=== PATIENT | female | born 1995 | race Caucasian/White ===

== ENCOUNTER → 2017-03-09 | Outpatient (CLI) | payer BC | LOC: FCPNEURO 21:00 | PROVIDERS: ATTEND Student in an Organized Health Care Education/Training Program | DX: G47.33 Obstructive sleep apnea (adult) (pediatric) (principal) ==

== ENCOUNTER → 2017-03-22 | Outpatient (CLI) | payer BC | LOC: BMCIMAGING 17:32 | PROVIDERS: ATTEND Family Medicine | DX: J34.89 Other specified disorders of nose and nasal sinuses (principal); R51 Headache ==

== ENCOUNTER 2018-06-17 14:50 | Emergency (ER) | payer OTHER ==
--- NOTE | 2018-06-17 15:32 | EDPHY ---
H & P Time Seen by Provider: 06/17/18 15:32 HPI/ROS: Chief complaint. Abdominal pain HPI. 22-year-old female with recent UTI and took 10 days of antibiotics. Now with left lower quadrant pain for 1 hr. Radiating through to her back. Nausea vomiting and diarrhea. No urinary symptoms. No chest pain or shortness of breath. No fever. Pain is described as sharp left lower quadrant radiating through to her back ROS 10 systems were reviewed and negative with the exception of the elements mentioned in the history of present illness Past Medical/Surgical History: Doses, mood disorder, fallopian tube cysts Social History: Single, nonsmoker, no alcohol Smoking Status: Never smoked Physical Exam: General Appearance: Alert well-developed female moderate distress and crying vital signs significant for heart rate 103 Eyes: Pupils equal and round no pallor or injection. ENT, Mouth: Mucous membranes are moist. Respiratory: There are no retractions, lungs are clear to auscultation. Cardiovascular: Regular rate and rhythm. Gastrointestinal: Abdomen is soft with tenderness in the left adnexa. No masses. Normal bowel sounds Neurological: Awake and alert, sensory and motor exams grossly normal. Skin: Warm and dry, no rashes. Musculoskeletal: Neck is supple nontender. Extremities symmetrical, full range of motion. Psychiatric: Patient is oriented X 3, there is no agitation. Constitutional: Initial Vital Signs Temperature (C) 36.3 C 06/17/18 15:02 Heart Rate 103 H 06/17/18 15:02 Respiratory Rate 18 06/17/18 15:02 Blood Pressure 122/88 H 06/17/18 15:02 O2 Sat (%) 100 06/17/18 15:02 O2 Delivery Mode Room Air Allergies/Adverse Reactions: No Known Allergies Allergy (Verified 06/17/18 15:01) Home Medications: Medication Instructions Recorded Wellbutrin 150mg SR (*) 06/17/18 Medical Decision Making - Diagnostics Imaging Results: Imaging Impressions Pelvic/Renal Ultrasound 06/17/18 15:38 Impression: Negative ultrasound pelvis. Results called to Dr. Fernandez at 4:20 PM Procedures: Old records are reviewed IV normal saline. Fentanyl, Toradol, Zofran for pain and nausea ED Course/Re-evaluation: Re-evaluation at 5:10 p.m.. Patient is stable. Patient and I discussed imaging studies and laboratory evaluation. We discussed further workup including CT for left lower quadrant pain. She has really quite comfortable at this point. She has an appointment with her senior data warehouse architect tomorrow in [place]. She feels comfortable waiting for that appointment and not having CT today. She is encouraged by me to return for worsening symptoms tonight. She will be given labs and ultrasound on a CD Differential Diagnosis: Left lower quadrant pain. I have considered ovarian cyst, urinary tract infection, pyelonephritis. This may be exacerbation of her endometriosis - Data Points Laboratory Results: Laboratory Results 06/17/18 15:50 06/17/18 15:50 06/17/18 06/17/18 06/17/18 16:15 15:50 15:50 WBC RBC Hgb Hct MCV MCH MCHC RDW Plt Count MPV Neut % (Auto) Lymph % (Auto) [place] % (Auto) Eos % (Auto) Baso % (Auto) Nucleat RBC Rel Count Absolute Neuts (auto) Absolute Lymphs (auto) Absolute Monos (auto) Absolute Eos (auto) Absolute Basos (auto) Absolute Nucleated RBC Immature Gran % Immature Gran # Sodium 139 mEq/L mEq/L (135-145) Potassium 3.8 mEq/L mEq/L (3.5-5.2) Chloride 109 mEq/L mEq/L (97-110) Carbon Dioxide 22 mEq/l mEq/l (22-31) Anion Gap 8 mEq/L mEq/L (6-14) BUN 9 mg/dL mg/dL (7-23) Creatinine 0.7 mg/dL mg/dL (0.6-1.0) Estimated GFR > 60 Glucose 91 mg/dL mg/dL (70-100) Calcium 9.6 mg/dL mg/dL (8.5-10.4) Beta HCG, Qual NEGATIVE Urine Color COLORLESS Urine Appearance CLEAR Urine pH 9.0 H (5.0-7.5) Ur Specific [place] 1.002 (1.002-1.030) Urine Protein NEGATIVE (NEGATIVE) Urine Ketones NEGATIVE (NEGATIVE) Urine Blood NEGATIVE (NEGATIVE) Urine Nitrate NEGATIVE (NEGATIVE) Urine Bilirubin NEGATIVE (NEGATIVE) Urine Urobilinogen NEGATIVE EU EU (0.2-1.0) Ur Leukocyte Esterase NEGATIVE (NEGATIVE) Urine RBC NONE SEEN /hpf /hpf (0-3) Urine WBC 0-1 /hpf /hpf (0-3) Ur Epithelial Cells NONE SEEN /lpf /lpf (NONE-1+) Urine Glucose NEGATIVE (NEGATIVE) 06/17/18 15:50 WBC 5.96 10^3/uL 10^3/uL (3.80-9.50) RBC 4.84 10^6/uL 10^6/uL (4.18-5.33) Hgb 14.5 g/dL g/dL (12.6-16.3) Hct 42.7 % % (38.0-47.0) MCV 88.2 fL fL (81.5-99.8) MCH 30.0 pg pg (27.9-34.1) MCHC 34.0 g/dL g/dL (32.4-36.7) RDW 12.9 % % (11.5-15.2) Plt Count 190 10^3/uL 10^3/uL (150-400) MPV 12.9 fL H fL (8.7-11.7) Neut % (Auto) 62.7 % % (39.3-74.2) Lymph % (Auto) 26.2 % % (15.0-45.0) [place] % (Auto) 8.9 % % (4.5-13.0) Eos % (Auto) 1.2 % % (0.6-7.6) Baso % (Auto) 0.7 % % (0.3-1.7) Nucleat RBC Rel Count 0.0 % % (0.0-0.2) Absolute Neuts (auto) 3.74 10^3/uL 10^3/uL (1.70-6.50) Absolute Lymphs (auto) 1.56 10^3/uL 10^3/uL (1.00-3.00) Absolute Monos (auto) 0.53 10^3/uL 10^3/uL (0.30-0.80) Absolute Eos (auto) 0.07 10^3/uL 10^3/uL (0.03-0.40) Absolute Basos (auto) 0.04 10^3/uL 10^3/uL (0.02-0.10) Absolute Nucleated RBC 0.00 10^3/uL 10^3/uL (0-0.01) Immature Gran % 0.3 % % (0.0-1.1) Immature Gran # 0.02 10^3/uL 10^3/uL (0.00-0.10) Sodium Potassium Chloride Carbon Dioxide Anion Gap BUN Creatinine Estimated GFR Glucose Calcium Beta HCG, Qual Urine Color Urine Appearance Urine pH Ur Specific [place] Urine Protein Urine Ketones Urine Blood Urine Nitrate Urine Bilirubin Urine Urobilinogen Ur Leukocyte Esterase Urine RBC Urine WBC Ur Epithelial Cells Urine Glucose Medications Given: Discontinued Medications Fentanyl (Sublimaze) 100 mcg IVP EDNOW ONE Stop: 06/17/18 15:39 Last Admin: 06/17/18 16:12 Dose: 100 mcg Sodium Chloride (Ns) 1,000 mls @ 0 mls/hr IV EDNOW ONE; Wide Open PRN Reason: Protocol Stop: 06/17/18 15:39 Last Admin: 06/17/18 16:12 Dose: 1,000 mls Ketorolac Tromethamine (Toradol) 30 mg IVP EDNOW ONE Stop: 06/17/18 15:39 Last Admin: 06/17/18 16:12 Dose: 30 mg Ondansetron HCl (Zofran) 4 mg IVP EDNOW ONE Stop: 06/17/18 15:39 Last Admin: 06/17/18 16:12 Dose: 4 mg Departure - Departure Disposition: Home, Routine, Self-Care Clinical Impression: Abdominal pain Qualifiers: Abdominal location: left lower quadrant Qualified Code(s): R10.32 - Left lower quadrant pain Condition: Good Instructions: Acute Abdominal Pain (ED) Additional Instructions: Tylenol 650 mg every 4-6 hours, ibuprofen 400 mg every 6 hr for discomfort Return tonight for worsening symptoms including increased pain, fever, vomiting Keep her follow-up appointment tomorrow with your senior data warehouse architect Referrals: Brielle Loza MD [Primary Care Provider] - As per Instructions
[2018-06-17] MEDS ORDERED: KETOROLAC 30 MG/1 ML SDV IVP ONE (15:38)
[2018-06-17] MEDS ORDERED: NS 1,000 ML IV ONE (15:38)
[2018-06-17] MEDS ORDERED: ONDANSETRON 4 MG/2 ML VIAL IVP ONE (15:38)
[2018-06-17] MEDS ORDERED: fentaNYL 100 MCG/2 ML INJ IVP ONE (15:38)
[2018-06-17 16:29] LABS: PLATELET COUNT 190 10^3/uL (150-400)
[2018-06-17 17:36] VITALS: BP 107/58
== END 2018-06-17 17:44 | disposition home or self-care (01) ==
DX: R10.32 Left lower quadrant pain (principal); E86.9 Volume depletion, unspecified
CPT/HCPCS: 96374; J1885; J2405; J3010